=== PATIENT | female | born 1945 ===

== ENCOUNTER → 2022-09-07 | Outpatient (CLI) | payer MEDICARE, OTHER | LOC: LAB SHORT 07:19 → PLD 07:19 | DX: R23.8 Other skin changes (principal); L53.9 Erythematous condition, unspecified | CPT/HCPCS: 88312 ==

== ENCOUNTER → 2023-04-24 | Outpatient (CLI) | payer MEDICARE, OTHER | LOC: LAB 10:03 → LAB SHORT 10:03 | DX: R21 Rash and other nonspecific skin eruption (principal) | CPT/HCPCS: 88312 ==